=== PATIENT | male | born 1950 | race Caucasian/White ===

== ENCOUNTER 2021-05-20 14:17 | Emergency (ER) | payer MEDICARE ==
[~2021-05-20 14:17] MED LIST: ACULAR 0.5% OP S5 ML EYELF; ATENOLOL50 MG PO; LISINOPRIL20 MG PO; SULFASALAZINE500 MG PO; TYLENOL W/CODEIN1 E1 PO; VIGAMOX3 ML EYEBOTH
[2021-05-20 15:13] LABS: HEMOGLOBIN 13.4 gm/dl (14.0-17.5); RED BLOOD COUNT 4.19 M/UL (4.20-5.50); WHITE BLOOD COUNT 11.2 K/UL (4.5-11.0)
[2021-05-20 15:39] LABS: BUN/CREATININE RATIO 14 (0-10)
[2021-05-20] MEDS ORDERED: FLORASTOR250 MG PO (17:46)
[2021-05-20] MEDS ORDERED: BENTYL 20MG TAB20 MG PO (17:46)
[2021-05-20] MEDS ORDERED: AUGMENTIN 875-1 EACH PO (17:52)
== END 2021-05-20 17:57 | disposition home or self-care (01) ==
LOC: ER1 14:17
PROVIDERS: Emergency Medicine
DX: R19.7 Diarrhea, unspecified (principal); R10.84 Generalized abdominal pain; M06.9 Rheumatoid arthritis, unspecified; R53.1 Weakness; Z20.822 Contact with and (suspected) exposure to COVID-19
CPT/HCPCS: 80053; 81001; 85025; 96374; 96375; 99284; J2270; J2405; Q9967; U0002

== ENCOUNTER → 2022-05-08 | Outpatient (CLI) | payer MEDICARE ==
[~2022-05-08] MED LIST changes: +AUGMENTIN 875-1 EACH PO; +BENTYL 20MG TAB20 MG PO; +FLORASTOR250 MG PO
== END ==
LOC: KOH-I 14:01
DX: E05.90 Thyrotoxicosis, unspecified without thyrotoxic crisis or storm (principal); M06.9 Rheumatoid arthritis, unspecified; M25.50 Pain in unspecified joint; I10 Essential (primary) hypertension; Z76.0 Encounter for issue of repeat prescription; Z71.2 Person consulting for explanation of examination or test findings
CPT/HCPCS: 76536